=== PATIENT | male | born 1995 | race African-American/Black ===

== ENCOUNTER 2018-05-28 05:08 | Emergency (ER) | payer SELFPAY ==
[2018-05-28 05:53] LABS: #Basophils 0.1 thou/uL (0.0-0.2); #Eosinphils 0.1 thou/uL (0.0-0.7); #Lymphocytes 3.7 thou/uL (1.20-3.40); #Monocytes 0.8 thou/uL (0.11-0.59); #Neutrophils 10.9 thou/uL (1.40-6.50); %Basophils 0.5 % (0.0-1.0); %Eosinophils 0.5 % (0.0-10.0); %Lymphocytes 23.9 % (21.0-51.0); %Monocytes 4.9 % (0.0-10.0); %Neutrophils 70.3 % (42.0-75.0); Hemoglobin 14.7 g/dL (14.0-18.0); Mean Corpuscular HGB CONC 32.5 g/dL (32.0-36.0); Mean Corpuscular Hemoglobin 27.2 pg (27.0-31.0); Mean Corpuscular Volume 83.9 fL (78.0-98.0); Mean Platelet Volume 7.8 fL (7.4-10.4); Platelet Count 350 thou/uL (130-400); RBC Distribution Width 12.6 % (11.5-14.5); White Blood Cell (WBC) Count 15.5 thou/uL (4.8-10.8)
[2018-05-28] MEDS ORDERED: Adacel (T-DAP) 0.5 ML SYRINGE ONE (05:56)
[2018-05-28] MEDS ORDERED: Lidocaine 4% Topical Sol 50 ML BOT ONE (05:56)
[2018-05-28] MEDS ORDERED: Lidocaine 1% (PF) 30 ML VIAL ONE (05:56)
[2018-05-28 06:05] LABS: ALT (SGPT) 66 U/L (8-55); AST (SGOT) 60 U/L (5-34); Albumin 4.4 g/dL (3.5-5.0); Alcohol 105 mg/dL (Less than 10); Alkaline Phosphatase 60 U/L (40-150); Anion Gap 14 mmol/L (10-20); BUN (Urea Nitrogen) 7 mg/dL (8.9-20.6); Bilirubin, Total 0.3 mg/dL (0.2-1.2); Calc. Creatinine Clearance 0 mL/min (70-130); Carbon Dioxide 24 mmol/L (22-29); Chloride 106 mmol/L (98-107); Estimated GFR-MDRD Greater than 90; Globulin 3.3 g/dL (2.4-3.5); Glucose 132 mg/dL (70-105); Lipase 13 U/L (8-78); Potassium 4.3 mmol/L (3.5-5.1); Protein, Total 7.7 g/dL (6.0-8.3); Sodium 140 mmol/L (136-145)
[2018-05-28] MEDS ORDERED: Bacteriostatic Water 30 ML VIAL FS PRN (06:38)
[2018-05-28] MEDS ORDERED: methylPREDNISolone Sod Succ 40 MG VIAL IVP SCH (06:45)
[2018-05-28] MEDS ORDERED: SODIUM CHLORIDE 0.9% IVPB SCH (07:45)
[2018-05-28] MEDS ORDERED: METHYLPREDNISOLONE SOD SUCC IVPB SCH (07:45)
--- NOTE | 2018-05-28 07:48 | RAD ---
Exam: Chest one view HISTORY:Status post fall from third story. Posttraumatic pain. Comparison: None FINDINGS: Cardiac silhouette: Normal Pulmonary vessels: Normal Costophrenic angles: Clear LUNGS: No masses or consolidation. Pneumothorax: None Osseous abnormalities: None IMPRESSION: No acute cardiopulmonary process.
--- NOTE | 2018-05-28 07:51 | CT ---
CT OF HEAD NONCONTRAST: INDICATION: Posttraumatic pain, fall. FINDINGS: No intracranial hemorrhage, mass effect, or midline shift. Ventricular system is normal in size. No pneumocephalus. No depressed calvarial fracture. There is a right frontal scalp laceration. IMPRESSION: No acute intracranial hemorrhage or mass effect. Notification of findings made available at 0545 hours. POS: DEREK
--- NOTE | 2018-05-28 07:51 | PRG ---
DATE OF SERVICE: 05/28/2018 The patient is seen and examined. I agree with Felisa Sawyer's evaluation on 05/28/2018. The patient is a 22-year-old male, who apparently fell from a balcony, drunk. He was brought in by EMS in a cervical collar and spine precautions. He is alert and interactive, but somewhat inappropriate presumably related to the alcohol intoxication. He is fairly cooperative with the neurologic exam. He seems to have a good strength in both upper extremities proximally and distally. He seems to have good strength in the right leg. He has some movement in the left leg particularly proximally but seems to be weak in the distal left leg. He does seem to have some pain with movement of the left leg. The patient apparently has normal sensory exam to the degree that he is cooperative. Imaging has revealed a C7 complex burst fracture with some retropulsion of fragments and some canal compromise. There is also some fracture of the posterior elements at the C7 level, that is not displaced. IMPRESSION AND PLAN: The patient has a complex C7 fracture. His neuro exam is unusual in the sense that the only deficit is in the left lower extremity. We will initiate a steroid protocol, however, I cannot exclude peripheral trauma to the left leg as a potential cause for the left leg symptoms. It should be noted that no other specific injuries including the thoracic and lumbar spine have been noted on CT scanning. Ultimately with this complex C7 fracture, may require vertebral corpectomy with fusion down to the T1 level. This may be required from both anterior and posterior approaches and may also require extending below the T1 level depending on findings. A preoperative MRI scan may be useful in this regard. Given the complexities and the potential for multimodality surgery involving thoracic surgery at this level, I recommend transfer to a tertiary facility, where multimodality surgery of this complexity can be achieved in a reasonable time frame. Discussed with ER staff and physician. Job ID: [id number]
--- NOTE | 2018-05-28 07:55 | CT ---
CERVICAL SPINE CT NONCONTRAST: INDICATION: Injury with pain related to fall. FINDINGS: There is a burst fracture of C7 with associated moderate retropulsion of bone producing moderate to s evere cord compromise within limitations of noncontrast CT imaging. Fracture with extension into the posterior elements is present traversing the left pedicle and lamina as well as the left foramen tra nsversarium. There is slight posttraumatic widening of the left facet joint of C7-T1. The craniocer vical junction is intact. There is straightening of the normal cervical curvature. IMPRESSION: Burst fracture of C7 with associated retropulsion and extensive mass effect upon the cervical spinal cord. Fracture involvement of the posterior elements is also present including the left pedicle and lamina at the left foramen transversarium. Telephone call placed to patient's ER physician, Dr. Araceli Corona, at 0547 hours 05/28/2018. CODE CR POS: [email or web address]
--- NOTE | 2018-05-28 08:01 | CT ---
CT CHEST WITH CONTRAST CT ABDOMEN AND PELVIS WITH CONTRAST CT THORACIC SPINE WITH CONTRAST CT LUMBAR SPINE WITH CONTRAST 3D VOLUME RENDERING PERFORMED: INDICATION: Posttraumatic pain. FINDINGS: There is no pneumothorax or pleural effusion. There are scattered mild bilateral patchy pulmonary pa renchymal opacities that could relate either to edema or contusion in light of clinical history. The thoracoabdominal aorta is nonaneurysmal. No evidence of ascites or free air. No acute posttraumati c abnormality of the solid abdominal organs is visualized. The bowel is incompletely evaluated witho ut enteric contrast. No fracture of the sternum is identified. Vertebral body height and alignment of the thoracolumbar spine are maintained. Incidental note of cervical spine fracture (C7 segment) i s documented on the concurrently dictated CT cervical spine report. Reference separate dictation for details. IMPRESSION: 1. Incidental C7 spinal fracture which is separately reported on the cervical spine dictation. Refe rence that report for details. 2. Nonspecific patchy opacities of the pulmonary parenchyma bilaterally, as discussed above. 3. No acute posttraumatic sequelae of the abdomen and pelvis. Notification of results made available at 0556 hours 05/28/2018. CODE CR POS: [email or web address]
--- NOTE | 2018-05-28 08:27 | RAD ---
FRONTAL VIEW PELVIS: INDICATION: Posttraumatic pain. FINDINGS: Hip joints maintain alignment. There is no fracture or dislocation. IMPRESSION: No acute osseous abnormality of pelvis. POS: [email or web address]
[2018-05-28 08:49] LABS: Bilirubin Negative (Negative); Blood, Urine Large (Negative); Clarity CLEAR (Clear); Glucose, Urine (Dipstick) Negative (Negative); Leukocyte Negative (Negative); Nitrite Negative (Negative); Protein, Urine (Dipstick) 100 mg/dL (Neg-Trace); Specific Gravity, Urine 1.036 (1.002-1.036)
[2018-05-28 08:53] LABS: Amphetamine Not Detected (NotDetected); Barbiturates Screen Not Detected (NotDetected); Benzodiazepine Screen Not Detected (NotDetected); Cocaine Metabolite Screen Not Detected (NotDetected); Medtox Reader # READER 4; Methadone Not Detected (NotDetected); Methamphetamine Not Detected (NotDetected); Opiate Screen Not Detected (NotDetected); Oxycodone Screen Not Detected (NotDetected); Phencyclidine (PCP) Not Detected (NotDetected); RBC/HPF 21-50 HPF (0-3); THC/Cannabinoid Screen Detected (NotDetected); Tricyclic Screen Not Detected (NotDetected); WBC/HPF 0-3 HPF (0-3)
[2018-05-28 08:54] LABS: Medtox Control Line Valid? VALID (VALID)
[2018-05-28 08:55] LABS: Pathc Cast-AUWi Flag 4.21 (0-2.49)
[2018-05-28 09:03] LABS: Bacteria/HPF Rare-Few HPF (None Seen); Crystals/HPF 1+ AMORPH URATES HPF (Negative); Other Casts/LPF None Seen LPF (0-3 Hyaline); Yeast-All Forms None Seen HPF (None Seen)
== END 2018-05-28 09:01 | disposition short-term general hospital (02) ==
LOC: ERS 05:08
DX: S12.600A Unspecified displaced fracture of seventh cervical vertebra, initial encounter for closed fracture (principal); W19.XXXA Unspecified fall, initial encounter
CPT/HCPCS: 12013; 36415; 51702; 70450; 71045; 71260; 72125; 72170; 74177; 80053; 80306; 80307; 81003; 81015; 83690; 85025; 86850; 86900; 86901; 90471; 90715; 96374; 96375; 99292; G0390; J2001; J2930; J7050